=== PATIENT | female | born 1975 | race Two or more races ===

== ENCOUNTER 2018-09-13 15:41 | Outpatient (CLI) | payer OTHER ==
[~2018-09-13 15:41] MED LIST: CATAFLAM50 MG PO
== END 2018-09-13 16:13 | disposition home or self-care (01) ==
LOC: TOM 15:41
DX: R51 Headache (principal); S09.90XA Unspecified injury of head, initial encounter

== ENCOUNTER 2019-02-25 10:37 | Outpatient (CLI) | payer OTHER | END 2019-02-25 11:21 | disposition home or self-care (01) | LOC: MAMO-SONO 10:37 | DX: Z12.31 Encounter for screening mammogram for malignant neoplasm of breast (principal); R10.2 Pelvic and perineal pain ==

== ENCOUNTER 2020-06-05 11:02 | Outpatient (CLI) | payer OTHER | END 2020-06-05 11:06 | disposition home or self-care (01) | LOC: MAMO-SONO 11:02 | PROVIDERS: ATTEND Obstetrics & Gynecology Maternal & Fetal Medicine | DX: Z12.31 Encounter for screening mammogram for malignant neoplasm of breast (principal); N63.10 Unspecified lump in the right breast, unspecified quadrant; N63.20 Unspecified lump in the left breast, unspecified quadrant; N64.4 Mastodynia; N60.11 Diffuse cystic mastopathy of right breast; R10.10 Upper abdominal pain, unspecified ==

== ENCOUNTER 2020-08-07 12:33 | Outpatient (CLI) | payer OTHER | END 2020-08-07 13:46 | disposition home or self-care (01) | LOC: MRI 12:33 | DX: G93.2 Benign intracranial hypertension (principal) | CPT/HCPCS: 70551 ==

== ENCOUNTER 2020-08-28 21:03 | Emergency (ER) | payer OTHER ==
[~2020-08-28] VITALS: Ht 160 cm; Wt 65.8 kg
[2020-08-28] MEDS ORDERED: ECOTRIN325 M1 (21:17)
[2020-08-28] MEDS ORDERED: NORVASC2.5 M1 (21:17)
== END 2020-08-28 23:38 | disposition home or self-care (01) ==
LOC: ER 21:03 → CPU-OBS 21:08 → ER 23:38
DX: I16.0 Hypertensive urgency (principal); I10 Essential (primary) hypertension
CPT/HCPCS: G0378; G0379; 93005

== ENCOUNTER 2020-09-08 14:04 | Outpatient (CLI) | payer OTHER ==
[~2020-09-08 14:04] MED LIST changes: +ECOTRIN325 M1; +NORVASC2.5 M1
== END 2020-09-08 14:22 | disposition home or self-care (01) ==
LOC: SONOGRAMA 14:04
PROVIDERS: ATTEND Internal Medicine Cardiovascular Disease
DX: N20.0 Calculus of kidney (principal)

== ENCOUNTER 2020-10-09 13:45 | Outpatient (CLI) | payer OTHER | END 2020-10-09 13:50 | disposition home or self-care (01) | LOC: LAB 13:45 | DX: Z20.828 Contact with and (suspected) exposure to other viral communicable diseases (principal) ==

== ENCOUNTER 2021-10-06 09:48 | Outpatient (CLI) | payer OTHER | END 2021-10-06 10:09 | disposition home or self-care (01) | LOC: MAMO-SONO 09:48 | PROVIDERS: ATTEND Obstetrics & Gynecology Maternal & Fetal Medicine | DX: R92.0 Mammographic microcalcification found on diagnostic imaging of breast (principal); Z12.31 Encounter for screening mammogram for malignant neoplasm of breast; M72.2 Plantar fascial fibromatosis; N60.11 Diffuse cystic mastopathy of right breast; N64.4 Mastodynia ==

== ENCOUNTER 2023-01-24 15:01 | Outpatient (CLI) | payer OTHER | END 2023-01-24 15:11 | disposition home or self-care (01) | LOC: MRI 15:01 | PROVIDERS: ATTEND Physical Medicine & Rehabilitation | DX: M54.59 Other low back pain (principal); M62.830 Muscle spasm of back | CPT/HCPCS: 72148 ==

== ENCOUNTER 2023-05-30 11:26 | Outpatient (CLI) | payer OTHER | END 2023-05-30 11:38 | disposition home or self-care (01) | LOC: MAMO-SONO 11:26 | PROVIDERS: ATTEND Obstetrics & Gynecology Maternal & Fetal Medicine | DX: Z12.31 Encounter for screening mammogram for malignant neoplasm of breast (principal); N63.0 Unspecified lump in unspecified breast; N64.4 Mastodynia; N60.11 Diffuse cystic mastopathy of right breast ==

== ENCOUNTER 2023-07-14 10:42 | Outpatient (CLI) | payer OTHER | END 2023-07-14 10:59 | disposition home or self-care (01) | LOC: SONOGRAMA 10:42 | PROVIDERS: ATTEND General Practice | DX: E04.0 Nontoxic diffuse goiter (principal); R10.10 Upper abdominal pain, unspecified; R14.0 Abdominal distension (gaseous); E03.9 Hypothyroidism, unspecified; I10 Essential (primary) hypertension; Z00.8 Encounter for other general examination; Z83.49 Family history of other endocrine, nutritional and metabolic diseases; Z12.11 Encounter for screening for malignant neoplasm of colon ==

== ENCOUNTER 2024-07-17 10:52 | Outpatient (CLI) | payer OTHER | END 2024-07-17 12:24 | disposition home or self-care (01) | LOC: MAMO-SONO 10:52 | PROVIDERS: ATTEND Obstetrics & Gynecology | DX: R10.2 Pelvic and perineal pain (principal); N60.11 Diffuse cystic mastopathy of right breast; N60.12 Diffuse cystic mastopathy of left breast ==

== ENCOUNTER 2024-12-17 13:40 | Outpatient (CLI) | payer OTHER ==
[~2024-12-17 13:40] MED LIST changes: +DIAZEPAM5 MG PO
== END 2024-12-17 13:49 | disposition home or self-care (01) ==
LOC: SONOGRAMA 13:40
PROVIDERS: ATTEND Obstetrics & Gynecology
DX: R10.2 Pelvic and perineal pain (principal)

== ENCOUNTER → 2025-04-29 | Outpatient (CLI) | payer OTHER | END | disposition home or self-care (01) | LOC: TOM 11:06 | PROVIDERS: ATTEND Specialist | DX: R10.2 Pelvic and perineal pain (principal); R91.1 Solitary pulmonary nodule ==

== ENCOUNTER 2025-07-29 13:22 | Outpatient (CLI) | payer OTHER | END 2025-07-29 13:26 | disposition home or self-care (01) | LOC: MAMO-SONO 13:22 | PROVIDERS: ATTEND Obstetrics & Gynecology | DX: N60.11 Diffuse cystic mastopathy of right breast (principal); N60.12 Diffuse cystic mastopathy of left breast; R10.2 Pelvic and perineal pain; D25.9 Leiomyoma of uterus, unspecified ==

== ENCOUNTER 2025-08-26 10:29 | Outpatient (CLI) | payer OTHER | END 2025-08-26 10:31 | disposition home or self-care (01) | LOC: MRI 10:29 | PROVIDERS: ATTEND Obstetrics & Gynecology | DX: R19.00 Intra-abdominal and pelvic swelling, mass and lump, unspecified site (principal); N93.8 Other specified abnormal uterine and vaginal bleeding | CPT/HCPCS: 72197 ==